=== PATIENT | female | born 1985 | race Caucasian/White ===

== ENCOUNTER 2016-10-30 18:58 | Emergency (ER) | payer SELFPAY ==
[~2016-10-30 18:58] MED LIST: IBUP800 PO; LORTA5 PO; PREN0.01 PO
[2016-10-30 18:59] VITALS: BP 133/75; PULSE 86; RESP 20; TEMP 98.7; O2SAT 99
[2016-10-30] MEDS ORDERED: SODIUM CHLOR 0.9% 1000 ML INJ 1,000 ML IV ONE (20:00)
--- NOTE | 2016-10-30 20:03 | PD ---
HPI Chief Complaint: [employer] Problem/Complaint Time Seen by Provider: 19:49 Travel History International Travel<30 days: No Contact w/Intl Traveler<30days: No Traveled to known affect area: No History of Present Illness HPI 31-year-old female presents to the emergency department for evaluation of vaginal bleeding for 11 days. Patient states is heavy she is having pelvic cramping. She reports history PCOS and ovarian cyst. She is currently on control pills as well as metformin for PCO as. She denies . She has a [id number] child that she is breast-feeding. Patient is a G3, P3. She denies any abnormal vaginal discharge. No risk of STDs, no new sexual partners. She is in a monogamous relation with her . She is unsure she could have a UTI. PFSH Past Medical History Diminished Hearing: No Reproductive: Yes (OVARIAN CYSTS, PCOS) ?: Not LMP: 10/19 Menopausal: No : 3 Para: 3 Ovarian Cysts: Yes (x3) Dilation and Curettage (D&C): Yes Past Surgical History Body Medical Devices: breast implants Gynecologic Surgery: Yes (OVARIAN CYST REMOVAL) Other Surgery: Yes (breast augmentation) Social History Alcohol Use: No Tobacco Use: No Substance Use: No Allergies-Medications (Allergen,Severity, Reaction): Coded Allergies: No Known Allergies (Verified , 08/21/15) Reported Meds & Prescriptions Reported Meds & Active Scripts Active Reported [place] 5-325 mg (Hydrocodone-Acetaminophen 5-325 mg) 1 Tab 1 Tab PO Q6H PRN Motrin 800 Mg Tab (Ibuprofen) 800 Mg Tab 800 Mg PO Q6HR Vit ( Plus) (Prenat Multivit/[place]/Iron/Folic Ac) Tab 1 Tab PO DAILY Review of Systems Except as stated in HPI: all other systems reviewed are Neg Physical Exam Narrative GENERAL: Well-nourished, well-developed female patient, afebrile. SKIN: Focused skin assessment warm/dry. HEAD: Normocephalic. Atraumatic. EYES: No scleral icterus. No injection or drainage. NECK: Supple, trachea midline. No JVD or lymphadenopathy. CARDIOVASCULAR: Regular rate and rhythm without murmurs, gallops, or rubs. RESPIRATORY: Breath sounds equal bilaterally. No accessory muscle use. Lungs sounds are clear to auscultation. GASTROINTESTINAL: Abdomen soft and nondistended. Mild tenderness to palpation over pelvic region. MUSCULOSKELETAL: No cyanosis, or edema. BACK: Nontender without obvious deformity. No CVA tenderness. Data Data Last Documented VS Vital Signs Date Time Temp Pulse Resp B/P (MAP) Pulse Ox O2 Delivery O2 Flow Rate FiO2 10/30/16 18:59 98.7 86 20 133/75 (94) 99 Room Air Orders Orders Complete Blood Count With Diff (10/30/16 19:55) Comprehensive Metabolic Panel (10/30/16 19:55) Urinalysis - C+S If Indicated (10/30/16 19:55) Iv Access Insert/Monitor (10/30/16 19:55) Ed Urine Pregnancytest Poc (10/30/16 19:55) Sodium Chlor 0.9% 1000 Ml Inj (Ns 1000 M (10/30/16 20:00) Labs Laboratory Tests Test 10/30/16 20:00 White Blood Count 6.8 TH/MM3 Red Blood Count 4.35 MIL/MM3 Hemoglobin 12.6 GM/DL Hematocrit 37.8 % Mean Corpuscular Volume 87.1 FL Mean Corpuscular Hemoglobin 29.1 PG Mean Corpuscular Hemoglobin Concent 33.4 % Red Cell Distribution Width 12.8 % Platelet Count 283 TH/MM3 Mean Platelet Volume 8.0 FL Neutrophils (%) (Auto) 53.2 % Lymphocytes (%) (Auto) 36.6 % Monocytes (%) (Auto) 6.9 % Eosinophils (%) (Auto) 2.8 % Basophils (%) (Auto) 0.5 % Neutrophils # (Auto) 3.6 TH/MM3 Lymphocytes # (Auto) 2.5 TH/MM3 Monocytes # (Auto) 0.5 TH/MM3 Eosinophils # (Auto) 0.2 TH/MM3 Basophils # (Auto) 0.0 TH/MM3 CBC Comment DIFF FINAL Differential Comment Blood Urea Nitrogen 16 MG/DL Creatinine 0.91 MG/DL Random Glucose 78 MG/DL Total Protein 7.1 GM/DL Albumin 3.6 GM/DL Calcium Level 8.8 MG/DL Alkaline Phosphatase 70 U/L Aspartate Amino Transf (AST/SGOT) 13 U/L Alanine Aminotransferase (ALT/SGPT) 21 U/L Total Bilirubin 0.3 MG/DL Sodium Level 140 MEQ/L Potassium Level 4.0 MEQ/L Chloride Level 107 MEQ/L Carbon Dioxide Level 25.3 MEQ/L Anion Gap 8 MEQ/L Estimat Glomerular Filtration Rate 72 ML/MIN MDM Medical Decision Making Medical Screen Exam Complete: Yes Emergency Medical Condition: Yes Medical Record Reviewed: Yes Differential Diagnosis Anemia versus dysmenorrhea versus UTI versus ovarian cyst Narrative Course 31-year-old female presents to the emergency department for evaluation of vaginal bleeding for 11 days. She reports history US and ovarian cyst. She states she called her hvac tech who told her to come to the emergency department. Patient denies . CBC, CMP, UA, urine test are ordered and pending. CBC is unremarkable. CMP shows no acute abnormality. UA is pending. UPT is negative. Dr. Mishra will disposition patient after UA is resulted. Shannon Caro Oct 30, 2016 20:03
[2016-10-30 20:15] LABS: AUTOMATED NEUTROPHIL # 3.6 TH/MM3 (1.8-7.7); BASOPHIL % 0.5 % (0.0-2.0); EOSINOPHIL # 0.2 TH/MM3 (0-0.4); EOSINOPHIL % 2.8 % (0.0-4.0); HEMATOCRIT 37.8 % (35.0-46.0); HEMO FLAGS DIFF FINAL; LYMPH % 36.6 % (9.0-44.0); LYMPHOCYTE # 2.5 TH/MM3 (1.0-4.8); MEAN CELL VOLUME 87.1 FL (80.0-100.0); MEAN CORPUSCULAR HEMOGLOBIN 29.1 PG (27.0-34.0); MEAN CORPUSCULAR HGB CONC 33.4 % (32.0-36.0); MONO % 6.9 % (0.0-8.0); NEUT % 53.2 % (16.0-70.0); PLATELET COUNT 283 TH/MM3 (150-450); RED BLOOD COUNT 4.35 MIL/MM3 (4.00-5.30); RED CELL DISTRIBUTION WIDTH 12.8 % (11.6-17.2); WHITE BLOOD COUNT 6.8 TH/MM3 (4.0-11.0)
[2016-10-30 20:32] LABS: ANION GAP 8 MEQ/L (5-15); AST (GOT) 13 U/L (15-37); BICARBONATE 25.3 MEQ/L (21.0-32.0); BLOOD UREA NITROGEN 16 MG/DL (7-18); CHLORIDE 107 MEQ/L (98-107); GLOMERULAR FILTRATION RATE 72 ML/MIN (>89); SODIUM (NA) 140 MEQ/L (136-145)
[2016-10-30 20:35] LABS: ALKALINE PHOSPHATASE 70 U/L (45-117); ALT (GPT) 21 U/L (10-53); TOTAL BILIRUBIN ADULT 0.3 MG/DL (0.2-1.0)
[2016-10-30 21:05] LABS: BLOOD, URINE MOD (NEG); COMMENT (UR) CULT NOT INDICATED; CULTURE IF INDICATED CULT NOT INDICATED; GLUCOSE,URINE NEG (NEG); KETONE, URINE 40 mg/dL (NEG); MUCUS URINE FEW /lpf (OCC); NITRITE,URINE NEG (NEG); PH, URINE 6.5 (5.0-8.5); SQUAMOUS EPITHELIAL CELL URINE <1 /hpf (0-5); URINE COLOR YELLOW (YELLW/STRAW)
--- NOTE | 2016-10-30 22:52 | PD ---
Physical Exam Date Seen by Provider: Oct 30, 2016 Time Seen by Provider: 22:52 Narrative Patient was seen by the nurse practitioner and the case was signed off to me to follow-up on the urinalysis result. The urinalysis came back to be within normal limit. Patient wanted to speak with me and I went back to see her and discussed the test results with her. She was asked to follow-up with her horseshoer. Since this was not an emergency she was explained that an ultrasound was not ordered in the ER. I answered all her questions to the best of my ability. Patient showed her understanding. She will be discharged home. Data Data Last Documented VS Vital Signs Date Time Temp Pulse Resp B/P (MAP) Pulse Ox O2 Delivery O2 Flow Rate FiO2 10/30/16 18:59 98.7 86 20 133/75 (94) 99 Room Air Orders Orders Complete Blood Count With Diff (10/30/16 19:55) Comprehensive Metabolic Panel (10/30/16 19:55) Urinalysis - C+S If Indicated (10/30/16 19:55) Iv Access Insert/Monitor (10/30/16 19:55) Ed Urine Pregnancytest Poc (10/30/16 19:55) Sodium Chlor 0.9% 1000 Ml Inj (Ns 1000 M (10/30/16 20:00) Labs Laboratory Tests Test 10/30/16 20:00 10/30/16 20:45 White Blood Count 6.8 TH/MM3 Red Blood Count 4.35 MIL/MM3 Hemoglobin 12.6 GM/DL Hematocrit 37.8 % Mean Corpuscular Volume 87.1 FL Mean Corpuscular Hemoglobin 29.1 PG Mean Corpuscular Hemoglobin Concent 33.4 % Red Cell Distribution Width 12.8 % Platelet Count 283 TH/MM3 Mean Platelet Volume 8.0 FL Neutrophils (%) (Auto) 53.2 % Lymphocytes (%) (Auto) 36.6 % Monocytes (%) (Auto) 6.9 % Eosinophils (%) (Auto) 2.8 % Basophils (%) (Auto) 0.5 % Neutrophils # (Auto) 3.6 TH/MM3 Lymphocytes # (Auto) 2.5 TH/MM3 Monocytes # (Auto) 0.5 TH/MM3 Eosinophils # (Auto) 0.2 TH/MM3 Basophils # (Auto) 0.0 TH/MM3 CBC Comment DIFF FINAL Differential Comment Blood Urea Nitrogen 16 MG/DL Creatinine 0.91 MG/DL Random Glucose 78 MG/DL Total Protein 7.1 GM/DL Albumin 3.6 GM/DL Calcium Level 8.8 MG/DL Alkaline Phosphatase 70 U/L Aspartate Amino Transf (AST/SGOT) 13 U/L Alanine Aminotransferase (ALT/SGPT) 21 U/L Total Bilirubin 0.3 MG/DL Sodium Level 140 MEQ/L Potassium Level 4.0 MEQ/L Chloride Level 107 MEQ/L Carbon Dioxide Level 25.3 MEQ/L Anion Gap 8 MEQ/L Estimat Glomerular Filtration Rate 72 ML/MIN Urine Color YELLOW Urine Turbidity CLEAR Urine pH 6.5 Urine Specific [place] 1.029 Urine Protein TRACE mg/dL Urine Glucose (UA) NEG mg/dL Urine Ketones 40 mg/dL Urine Occult Blood MOD Urine Nitrite NEG Urine Bilirubin NEG Urine Urobilinogen LESS THAN 2.0 MG/DL Urine Leukocyte Esterase NEG Urine RBC 26 /hpf Urine WBC 3 /hpf Urine Squamous Epithelial Cells <1 /hpf Urine Mucus FEW /lpf Microscopic Urinalysis Comment CULT NOT INDICATED MDM Supervised Visit with KIKE: Yes Diagnosis Primary Impression: Vaginal bleeding Patient Instructions: General Instructions Departure Forms: Tests/Procedures Disposition: DISCHARGE HOME Condition: Stable Amanda Mishra MD Oct 30, 2016 22:52
== END 2016-10-30 23:18 | disposition home or self-care (01) ==
LOC: NEPD 18:58
DX: N93.9 Abnormal uterine and vaginal bleeding, unspecified (principal); E28.2 Polycystic ovarian syndrome
CPT/HCPCS: 80053; 81001; 85025; 96360; 99284; J7030